=== PATIENT | male | born 1960 | race African-American/Black ===

== ENCOUNTER → 2017-02-28 | Outpatient (CLI) | payer OTHER ==
[2017-02-28 08:47] LABS: ABSOLUTE BASOPHILS # (AUTO) 0.1 10^3/uL (0.0-0.2); ABSOLUTE EOSINOPHILS # (AUTO) 0.2 10^3/uL (0.0-0.6); ABSOLUTE LYMPHOCYTES (AUTO) 2.2 10^3/uL (0.5-4.7); ABSOLUTE MONOCYTES (AUTO) 0.5 10^3/uL (0.1-1.4); ABSOLUTE NEUT (AUTO) 4.7 10^3/uL (1.7-8.2); BASOPHILS % (AUTO) 1.2 % (0-2); EOSINOPHILS % (AUTO) 2.1 % (0-6); HEMATOCRIT 47.8 % (37.9-51.0); HEMOGLOBIN 15.8 g/dL (13.5-17.0); HGB HCT DIFFERENCE -0.4; LYMPHOCYTES % (AUTO) 28.5 % (13-45); MEAN CORPUSCULAR HEMOGLOBIN 27.4 pg (27.0-33.4); MEAN CORPUSCULAR HGB CONC 33.1 g/dL (32.0-36.0); MEAN CORPUSCULAR VOLUME 83 fl (80-97); MONOCYTES % (AUTO) 6.8 % (3-13); RED BLOOD COUNT 5.78 10^6/uL (4.35-5.55); RED CELL DISTRIBUTION WIDTH 14.7 % (11.5-14.0); SEGMENTED NEUTROPHILS % (AUTO) 61.4 % (42-78); WHITE BLOOD COUNT 7.6 10^3/uL (4.0-10.5)
[2017-02-28 09:13] LABS: ALANINE AMINOTRANSFERASE 77 U/L (21-72); ALBUMIN 4.8 g/dL (3.5-5.0); ALKALINE PHOSPHATASE 126 U/L (38-126); ANION GAP 12 (5-19); ASPARTATE AMINO TRANSFERASE 71 U/L (17-59); BILIRUBIN,DIRECT 0.6 mg/dL (0.0-0.4); BLOOD UREA NITROGEN 13 mg/dL (7-20); CALCIUM 9.9 mg/dL (8.4-10.2); CARBON DIOXIDE 25 mmol/L (22-30); CHLORIDE 104 mmol/L (98-107); CREATININE RESULT 1.03 mg/dL (0.52-1.25); GLUCOSE 100 mg/dL (75-110); POTASSIUM 4.5 mmol/L (3.6-5.0); SODIUM 140.9 mmol/L (137-145); TOTAL PROTEIN 8.1 g/dL (6.3-8.2); URIC ACID 9.3 mg/dL (3.5-8.5)
[2017-03-01 06:38] LABS: LUTEINIZING HORMONE 2.5 mIU/mL (1.7-8.6)
[2017-03-01 07:24] LABS: FOLLICLE STIMULATING HORMONE 3.1 mIU/mL (1.5-12.4); PROSTATE SPECIFIC ANTIGEN 1.3 ng/mL (0.0-4.0); PSA % FREE 30.8 % (.)
== END ==
LOC: OD 07:39
PROVIDERS: ATTEND Urology
DX: I10 Essential (primary) hypertension (principal); E29.1 Testicular hypofunction; M10.9 Gout, unspecified
CPT/HCPCS: 36415; 80053; 83001; 83002; 84154; 84403; 84550; 85025

== ENCOUNTER → 2017-03-07 | Outpatient (CLI) | payer OTHER | LOC: OD 07:21 | PROVIDERS: ATTEND Urology | DX: I10 Essential (primary) hypertension (principal); N52.8 Other male erectile dysfunction; N40.1 Benign prostatic hyperplasia with lower urinary tract symptoms; E29.1 Testicular hypofunction | CPT/HCPCS: 36415; 80074 ==

== ENCOUNTER → 2017-05-29 | Outpatient (CLI) | payer OTHER ==
--- NOTE | 2017-05-29 17:24 | RADIOLOGY REPORT (SQ) ---
EXAM DESCRIPTION: C SP 4 OR 5 VIEWS; LUMBAR SPINE COMPLETE; T SPINE AP/LAT COMPLETED DATE/TIME: 05/29/2017 5:05 pm REASON FOR STUDY: UNSPECIFIED OSTEOARTHRITIS, UNSPECIFIED SITE COMPARISON: None. FINDINGS: Five view cervical spine: Grossly normal alignment. Spondylosis with multilevel mild dis c space narrowing with small osteophytes. Noncritical bilateral areas of foraminal narrowing. Proba staci worst on the right at C4-5 and C5-6. No fracture or bone lesion. Lung apices clear. No soft ti ssue swelling. No cervical ribs. Two views thoracic spine: No malalignment or fracture. No soft tissue pathology appreciated. Five views lumbosacral spine including obliques: Normal alignment. Disc space narrowing and small o steophytes, most pronounced at L4-5. No pars defect. Lower lumbar facet arthropathy. IMPRESSION: 1. Cervical spondylosis. 2. Lumbar spondylosis. 3. No evidence of fracture or bone les ion involving the cervical, thoracic or lumbosacral spine. TECHNICAL DOCUMENTATION: JOB ID: [id number]
== END ==
LOC: OD 15:44
PROVIDERS: ATTEND Urology
DX: M47.892 Other spondylosis, cervical region (principal); M47.896 Other spondylosis, lumbar region; M19.90 Unspecified osteoarthritis, unspecified site; I10 Essential (primary) hypertension; N40.1 Benign prostatic hyperplasia with lower urinary tract symptoms; R94.5 Abnormal results of liver function studies
CPT/HCPCS: 72050; 72070; 72110

== ENCOUNTER → 2017-06-05 | Outpatient (CLI) | payer OTHER ==
--- NOTE | 2017-06-05 11:00 | RADIOLOGY REPORT (SQ) ---
EXAM DESCRIPTION: CT ABDOMEN WITH IV ORAL CONT COMPLETED DATE/TIME: 06/05/2017 7:50 am REASON FOR STUDY: ABN LFT (R94.5) R94.5 ABNORMAL RESULTS OF LIVER FUNCTION STUDIES COMPARISON: None. TECHNIQUE: CT scan of the abdomen performed with intravenous and with oral contrast using helical sc anning technique with dynamic intravenous contrast injection. Images reviewed with lung, soft tissue, and bone windows. Reconstructed coronal and sagittal MPR images reviewed. Delayed images for evaluat ion of the urinary system also acquired and evaluated. All images stored on PACS. All CT scanners at this facility use dose modulation, iterative reconstruc tion, and/or weight based dosing when appropriate to reduce radiation dose to as low as reasonably ac hievable (ALARA). [facility]: Dose Right [facility]: CareDose [facility]: Dose Right [facility]: Teradose 4D [facility]: [email or web address] CONTRAST TYPE AND DOSE: contrast/concentration: Isovue 370.00 mg/ml; Total Contrast Delivered: 100.0 ml; Total Saline Delivered: 72.0 ml RENAL FUNCTION: Creatinine 1.2 RADIATION DOSE: Up-to-date CT equipment and radiation dose reduction techniques were employed. CTDIv ol: 19.4 - 20.7 mGy. DLP: 1563 mGy-cm. . LIMITATIONS: None. FINDINGS: LOWER CHEST: No significant findings. No nodules or infiltrates. LIVER: The liver is low in attenuation but is homogeneous. SPLEEN: Normal size. No focal lesions. PANCREAS: No masses. No significant calcifications. No adjacent inflammation or peripancreatic fluid collections. Pancreatic duct not dilated. GALLBLADDER: No identified stones by CT criteria. No inflammatory changes to suggest cholecystitis. ADRENAL GLANDS: No significant masses or asymmetry. RIGHT KIDNEY AND URETER: No solid masses. No significant calcifications. No hydronephrosis or hyd roureter. LEFT KIDNEY AND URETER: No solid masses. No significant calcifications. No hydronephrosis or hydr oureter. AORTA AND VESSELS: No aneurysm. No dissection. Renal arteries, SMA, celiac without stenosis. RETROPERITONEUM: No retroperitoneal adenopathy, hemorrhage or masses. BOWEL AND PERITONEAL CAVITY: Scattered diverticula arise from the descending colon. There are no acu te inflammatory changes. There is some haziness in the mesenteric fat, so-called " sergei mesentery, a nonspecific finding that may indicate small amount of edema or inflammation. APPENDIX: Included portions are normal. ABDOMINAL WALL: No masses. No hernias. BONES: There are some cystic/lytic changes in the L4 vertebral body anteriorly, likely associated wit h degenerative disc changes. OTHER: No other significant finding. IMPRESSION: 1. Fatty infiltration of the liver. 2. Diverticulosis coli. 3. Slight haziness in the mesenteric fat as described. 4. Changes at L4 felt to be degenerative. Is there any history of neoplasm? TECHNICAL DOCUMENTATION: JOB ID: [id number] Quality ID # [id number]: Final reports with documentation of one or more dose reduction techniques (e.g., Au tomated exposure control, adjustment of the mA and/or kV according to patient size, use of iterative reconstruction technique) 2010 [employer]- All Rights Reserved
== END ==
LOC: RAD 07:04
PROVIDERS: ATTEND Urology
DX: R94.5 Abnormal results of liver function studies (principal)
CPT/HCPCS: 74160; 82565

== ENCOUNTER → 2017-06-12 | Outpatient (CLI) | payer OTHER ==
[2017-06-12 08:45] LABS: ALANINE AMINOTRANSFERASE 74 U/L (21-72); ALBUMIN 4.1 g/dL (3.5-5.0); ALKALINE PHOSPHATASE 88 U/L (38-126); ANION GAP 9 (5-19); ASPARTATE AMINO TRANSFERASE 84 U/L (17-59); BILIRUBIN,DIRECT 0.5 mg/dL (0.0-0.4); BILIRUBIN,TOTAL 0.7 mg/dL (0.2-1.3); BLOOD UREA NITROGEN 11 mg/dL (7-20); CALCIUM 9.4 mg/dL (8.4-10.2); CARBON DIOXIDE 29 mmol/L (22-30); CHLORIDE 106 mmol/L (98-107); CREATININE RESULT 1.17 mg/dL (0.52-1.25); GLUCOSE 119 mg/dL (75-110); POTASSIUM 4.6 mmol/L (3.6-5.0); SODIUM 143.9 mmol/L (137-145)
== END ==
LOC: OD 07:37
PROVIDERS: ATTEND Urology
DX: I10 Essential (primary) hypertension (principal); N40.1 Benign prostatic hyperplasia with lower urinary tract symptoms; M54.5 Low back pain; E29.1 Testicular hypofunction; N52.8 Other male erectile dysfunction
CPT/HCPCS: 36415; 80053

== ENCOUNTER → 2017-07-26 | Outpatient (CLI) | payer OTHER | LOC: OD 15:27 | PROVIDERS: ATTEND Urology | DX: E29.1 Testicular hypofunction (principal) | CPT/HCPCS: 36415; 84403 ==

== ENCOUNTER 2018-06-24 17:31 | Emergency (ER) | payer OTHER ==
--- NOTE | 2018-06-24 18:07 | ER Document Report ---
ED Dizziness/Weakness - General Chief Complaint: Weakness Stated Complaint: POSSIBLE HIGH SUGAR LEVELS Time Seen by Provider: 06/24/18 18:05 Mode of Arrival: Ambulatory Information source: Patient, Relative Notes: Patient is a 57-year-old male with no significant past medical history who presents with "at least 2 months" of progressive global weakness and "having no energy." Patient denies chest pain or shortness of breath, no fevers or chills , no preceding symptoms or toxidromes. Patient presented to physician today for routine blood work and was instructed to come to the emergency department because his "blood sugar was high." TRAVEL OUTSIDE OF THE [place] IN LAST 30 DAYS: No - HPI Patient complains to provider of: Weakness Onset: Other - "Going back at least 2 months ago" Onset/Duration: Gradual Quality of pain: No pain Severity: Mild Pain Level: Denies Associated symptoms: Weak all over, Other - Polydipsia Baseline gait: Walks w/o assistance - Related Data Allergies/Adverse Reactions: No Known Allergies Allergy (Unverified 06/24/18 17:32) Past Medical History - General Information source: Patient, Relative - Social History Smoking Status: Never Smoker Chew tobacco use (# tins/day): No Frequency of alcohol use: None Drug Abuse: None Lives with: Family Family History: DM Patient has suicidal ideation: No Patient has homicidal ideation: No - Medical History Medical History: Negative - Past Medical History Cardiac Medical History: Reports: None Pulmonary Medical History: Reports: None EENT Medical History: Reports: None Neurological Medical History: Reports: None Endocrine Medical History: Reports: None Renal/ Medical History: Reports: None Malignancy Medical History: Reports None GI Medical History: Reports: None Musculoskeletal Medical History: Reports None Skin Medical History: Reports None Psychiatric Medical History: Reports: None Traumatic Medical History: Reports: None Infectious Medical History: Reports: None Surgical Hx: Negative Past Surgical History: Reports: None - Immunizations Immunizations up to date: Yes Hx Diphtheria, Pertussis, Tetanus Vaccination: Yes History of Influenza Vaccine for 04/2017 - 09/2017 Season: Unknown Review of Systems - Review of Systems -: Yes ROS unobtainable due to patient's medical condition Constitutional: See HPI, Weakness EENT: No symptoms reported Cardiovascular: No symptoms reported Respiratory: No symptoms reported Gastrointestinal: No symptoms reported Genitourinary: No symptoms reported Male Genitourinary: No symptoms reported Musculoskeletal: No symptoms reported Skin: No symptoms reported Hematologic/Lymphatic: No symptoms reported Neurological/Psychological: No symptoms reported -: Yes All other systems reviewed and negative Physical Exam - Vital signs Vitals: Temp Pulse Resp BP Pulse Ox 98.5 F 122 H 18 147/91 H 97 06/24/18 17:33 06/24/18 17:33 06/24/18 17:33 06/24/18 17:33 06/24/18 17:33 Interpretation: Normal - General General appearance: Appears well, Alert In distress: None - HEENT Head: Normocephalic, Atraumatic Eyes: Normal Pupils: PERRL - Respiratory Respiratory status: No respiratory distress Chest status: Nontender Breath sounds: Normal Chest palpation: Normal - Cardiovascular Rhythm: Regular Heart sounds: Normal auscultation Murmur: No - Abdominal Inspection: Normal Distension: No distension Bowel sounds: Normal Tenderness: Nontender Organomegaly: No organomegaly - Rectal Tenderness: No - Deferred - Genitourinary Notes: Deferred - Back Back: Normal, Nontender - Extremities General upper extremity: Normal inspection, Nontender, Normal color, Normal ROM , Normal temperature General lower extremity: Normal inspection, Nontender, Normal color, Normal ROM , Normal temperature, Normal weight bearing. No: Ranjana's sign - Neurological Neuro grossly intact: Yes Cognition: Normal Orientation: AAOx4 [place] Coma Scale Eye Opening: Spontaneous [place] Coma Scale Verbal: Oriented [place] Coma Scale Motor: Obeys Commands [place] Coma Scale Total: 15 Speech: Normal Motor strength normal: LUE, RUE, LLE, RLE Sensory: Normal - Psychological Associated symptoms: Normal affect, Normal mood - Skin Skin Temperature: Warm Skin Moisture: Dry Skin Color: Normal Course - Re-evaluation Re-evalutation: 06/24/18 19:25 Plan is to obtain labs including blood gas, give IV fluids and insulin if necessary, and reassess. Patient appears nontoxic and DKA is doubtful but possible. 06/24/18 23:38 Blood work shows no evidence of acute DKA. Patient has received 3 L of IV normal saline as well as 10 units of Regular Insulin and has improved. He will be discharged home with return precautions and follow-up with his physician. The patient understands and is in agreement with the plan. - Vital Signs Vital signs: Temp Pulse Resp BP Pulse Ox 98.5 F 122 H 16 155/90 H 99 06/24/18 17:33 06/24/18 17:33 06/24/18 22:03 06/24/18 22:03 06/24/18 22:03 - Laboratory Result Diagrams: 06/24/18 18:10 06/24/18 18:10 Laboratory results interpreted by me: 06/24/18 06/24/18 06/24/18 18:10 18:10 18:10 RBC 5.69 H RDW 14.2 H Sodium 136.6 L Chloride 95 L BUN 22 H Glucose 637 H* POC Glucose Calcium 10.3 H Direct Bilirubin 0.5 H Alkaline Phosphatase 194 H Creatine Kinase 310 H Urine Protein 30 H Urine Glucose (UA) >=500 H Urine Blood SMALL H 06/24/18 06/24/18 20:36 22:54 RBC RDW Sodium Chloride BUN Glucose POC Glucose 486 H* 360 H Calcium Direct Bilirubin Alkaline Phosphatase Creatine Kinase Urine Protein Urine Glucose (UA) Urine Blood - EKG Interpretation by Me EKG shows normal: Sinus rhythm Rate: Tachycardia Rhythm: NSR [place]/QRS: No: LBBB P Waves: No: SAÚL, LAE, Absent, AV Dissociation, Other Heart block present: No: 1st Degree, Mobitz 1, Mobitz 2, CHB (3rd degree block) When compared to previous EKG there are: Previous EKG unavailable Discharge - Discharge Clinical Impression: Diabetes, Weakness Condition: Good Disposition: HOME, SELF-CARE Instructions: Diabetes ([facility]) Additional Instructions: Please follow-up with your physician as scheduled. You have been provided with a prescription for medication, take this as instructed. Return to the emergency department if you experience uncontrollable thirst, excessive urination, generalized weakness, or have any other concerning symptom. Prescriptions: Metformin HCl [Glucophage 500 mg Tablet] 500 mg PO BID #60 tablet Ondansetron [Zofran Odt 4 mg Tablet] 1 - 2 tab PO Q6H PRN #30 tab.rapdis PRN Reason: For Nausea/Vomiting Referrals: NORMA CANALES MD [Primary Care Provider] - Follow up as needed Print Language: Wolof
[2018-06-24 19:05] LABS: ABSOLUTE BASOPHILS # (AUTO) 0.1 10^3/uL (0.0-0.2); ABSOLUTE EOSINOPHILS # (AUTO) 0.1 10^3/uL (0.0-0.6); ABSOLUTE LYMPHOCYTES (AUTO) 2.7 10^3/uL (0.5-4.7); ABSOLUTE MONOCYTES (AUTO) 0.7 10^3/uL (0.1-1.4); BASOPHILS % (AUTO) 0.9 % (0-2); EOSINOPHILS % (AUTO) 1.3 % (0-6); HEMATOCRIT 47.5 % (37.9-51.0); HEMOGLOBIN 16.4 g/dL (13.5-17.0); LYMPHOCYTES % (AUTO) 27.8 % (13-45); MEAN CORPUSCULAR HEMOGLOBIN 28.8 pg (27.0-33.4); MEAN CORPUSCULAR HGB CONC 34.5 g/dL (32.0-36.0); MEAN CORPUSCULAR VOLUME 84 fl (80-97); MONOCYTES % (AUTO) 7.5 % (3-13); PLATELET COUNT 160 10^3/uL (150-450); RED BLOOD COUNT 5.69 10^6/uL (4.35-5.55); RED CELL DISTRIBUTION WIDTH 14.2 % (11.5-14.0); SEGMENTED NEUTROPHILS % (AUTO) 62.5 % (42-78); TOTAL CELLS COUNTED % (AUTO) 100 %; WHITE BLOOD COUNT 9.6 10^3/uL (4.0-10.5)
[2018-06-24 19:11] LABS: ALANINE AMINOTRANSFERASE 66 U/L (21-72); ALBUMIN 4.7 g/dL (3.5-5.0); ALKALINE PHOSPHATASE 194 U/L (38-126); ANION GAP 19 (5-19); APPEARANCE,URINE CLEAR; ASPARTATE AMINO TRANSFERASE 57 U/L (17-59); BILIRUBIN,DIRECT 0.5 mg/dL (0.0-0.4); BILIRUBIN,TOTAL 0.8 mg/dL (0.2-1.3); BILIRUBIN,URINE NEGATIVE (NEGATIVE); BLOOD UREA NITROGEN 22 mg/dL (7-20); CALCIUM 10.3 mg/dL (8.4-10.2); CARBON DIOXIDE 23 mmol/L (22-30); CHLORIDE 95 mmol/L (98-107); COLOR,URINE YELLOW; CREATINE KINASE 310 U/L (55-170); GLUCOSE, URINE >=500 mg/dL (NEGATIVE); KETONES,URINE NEGATIVE (NEGATIVE); LEUKOCYTE ESTERASE,URINE NEGATIVE (NEGATIVE); NITRITE,URINE NEGATIVE (NEGATIVE); POTASSIUM 4.3 mmol/L (3.6-5.0); PROTEIN,URINE 30 mg/dL (NEGATIVE); SODIUM 136.6 mmol/L (137-145); TOTAL PROTEIN 8.2 g/dL (6.3-8.2); URINE SPECIFIC GRAVITY 1.021; UROBILINOGEN,URINE NEGATIVE mg/dL (<2.0)
[2018-06-24 19:22] LABS: CREATINE KINASE MB 4.2 ng/mL (<4.55); TROPONIN I 0.023 ng/mL
[2018-06-24 19:24] LABS: GLUCOSE 637 mg/dL (75-110)
[2018-06-24 19:29] LABS: VENOUS BLOOD BASE EXCESS 0.9 mmol/L; VENOUS BLOOD HCO3 25.9 mmol/L (20-32); VENOUS BLOOD PCO2 42.7 mmHg (35-63); VENOUS BLOOD PH 7.4 (7.30-7.42)
[2018-06-24] MEDS ORDERED: NORMAL SALINE 1000 ML 1,000 ML IV ONE ×2 (19:39→22:22)
[2018-06-24] MEDS ORDERED: INSULIN REG, HUMAN 100 UNIT/ML 3 ML VIAL (PYX) IV ONE (19:41)
[2018-06-24 23:48] VITALS: BP 143/88
--- NOTE | 2018-06-25 13:10 | EKG REPORT ---
SEVERITY:- ABNORMAL ECG - SINUS TACHYCARDIA BORDERLINE LEFT AXIS DEVIATION CONSIDER ANTERIOR INFARCT BORDERLINE T ABNORMALITIES, DIFFUSE LEADS : Confirmed by: Kaylan Valle MD 25-Jun-2018 13:09:56
== END 2018-06-24 23:48 | disposition home or self-care (01) ==
LOC: ER 17:31
DX: E11.9 Type 2 diabetes mellitus without complications (principal); R63.1 Polydipsia; R53.1 Weakness
CPT/HCPCS: 93005; 99285; 96360; 96361; 36415; 82553; 82962; 82550; 85025; 80053; 81001; 84484; 82803; 93010; J1815; J7030

== ENCOUNTER 2018-06-27 13:51 | Emergency (ER) | payer OTHER ==
[2018-06-27] MEDS ORDERED: NORMAL SALINE 1000 ML 1,000 ML IV ONE ×2 (15:15→18:54)
--- NOTE | 2018-06-27 15:16 | ER Document Report ---
ED Medical Screen (RME) - General Chief Complaint: Dizziness Stated Complaint: WEAKNESS Time Seen by Provider: 06/27/18 15:13 Notes: 57 years old male who was diagnosed with diabetes discharge home last Sunday presents back again with frequency of urination thirsty dryness in the mouth. Feeling generally uncomfortable. No fever chills or other constitutional symptoms Examination by large benign TRAVEL OUTSIDE OF THE [place] IN LAST 30 DAYS: No - Related Data Allergies/Adverse Reactions: No Known Allergies Allergy (Unverified 06/24/18 17:32) Past Medical History Renal/ Medical History: Denies: Hx Peritoneal Dialysis - Immunizations Immunizations up to date: Yes Hx Diphtheria, Pertussis, Tetanus Vaccination: Yes History of Influenza Vaccine for 04/2017 - 09/2017 Season: Unknown Physical Exam - Vital signs Vitals: Temp Pulse Resp BP Pulse Ox 98.5 F 119 H 18 148/86 H 97 06/27/18 13:52 06/27/18 13:52 06/27/18 13:52 06/27/18 13:52 06/27/18 13:52 Course - Vital Signs Vital signs: Temp Pulse Resp BP Pulse Ox 98.5 F 119 H 18 148/86 H 97 06/27/18 13:52 06/27/18 13:52 06/27/18 13:52 06/27/18 13:52 06/27/18 13:52 Doctor's Discharge - Discharge Referrals: NORMA CANALES MD [Primary Care Provider] - Follow up as needed
[2018-06-27] MEDS ORDERED: INSULIN REG, HUMAN 100 UNIT/ML 3 ML VIAL (PYX) SUBCUT ONE ×3 (15:18→20:22)
[2018-06-27] MEDS ORDERED: INSULIN REG, HUMAN 100 UNIT/ML 3 ML VIAL (PYX) IV ONE (15:19)
[2018-06-27 16:04] LABS: ABSOLUTE BASOPHILS # (AUTO) 0.2 10^3/uL (0.0-0.2); ABSOLUTE EOSINOPHILS # (AUTO) 0.1 10^3/uL (0.0-0.6); ABSOLUTE MONOCYTES (AUTO) 0.7 10^3/uL (0.1-1.4); ABSOLUTE NEUT (AUTO) 7.2 10^3/uL (1.7-8.2); BASOPHILS % (AUTO) 1.3 % (0-2); EOSINOPHILS % (AUTO) 1.3 % (0-6); HEMATOCRIT 47.8 % (37.9-51.0); HEMOGLOBIN 16.1 g/dL (13.5-17.0); LYMPHOCYTES % (AUTO) 26.5 % (13-45); MEAN CORPUSCULAR HEMOGLOBIN 28.8 pg (27.0-33.4); MEAN CORPUSCULAR HGB CONC 33.7 g/dL (32.0-36.0); MEAN CORPUSCULAR VOLUME 86 fl (80-97); MONOCYTES % (AUTO) 6.1 % (3-13); PLATELET COUNT 235 10^3/uL (150-450); RED BLOOD COUNT 5.59 10^6/uL (4.35-5.55); RED CELL DISTRIBUTION WIDTH 14.1 % (11.5-14.0); SEGMENTED NEUTROPHILS % (AUTO) 64.8 % (42-78); TOTAL CELLS COUNTED % (AUTO) 100 %; WHITE BLOOD COUNT 11.2 10^3/uL (4.0-10.5)
[2018-06-27 16:12] LABS: APPEARANCE,URINE CLEAR; BILIRUBIN,URINE NEGATIVE (NEGATIVE); COLOR,URINE STRAW; GLUCOSE, URINE >=500 mg/dL (NEGATIVE); KETONES,URINE NEGATIVE (NEGATIVE); LEUKOCYTE ESTERASE,URINE NEGATIVE (NEGATIVE); NITRITE,URINE NEGATIVE (NEGATIVE); PROTEIN,URINE NEGATIVE (NEGATIVE); URINE SPECIFIC GRAVITY 1.021; UROBILINOGEN,URINE NEGATIVE mg/dL (<2.0)
[2018-06-27 17:24] LABS: ALANINE AMINOTRANSFERASE 59 U/L (21-72); ALBUMIN 4.1 g/dL (3.5-5.0); ALKALINE PHOSPHATASE 149 U/L (38-126); ANION GAP 12 (5-19); ASPARTATE AMINO TRANSFERASE 79 U/L (17-59); BILIRUBIN,DIRECT 0.4 mg/dL (0.0-0.4); BLOOD UREA NITROGEN 19 mg/dL (7-20); CALCIUM 9.4 mg/dL (8.4-10.2); CARBON DIOXIDE 27 mmol/L (22-30); CHLORIDE 103 mmol/L (98-107); POTASSIUM 4.4 mmol/L (3.6-5.0); SODIUM 141.8 mmol/L (137-145); TOTAL PROTEIN 7.2 g/dL (6.3-8.2)
[2018-06-27 17:51] LABS: GLUCOSE 513 mg/dL (75-110)
--- NOTE | 2018-06-27 18:18 | ER Document Report ---
ED Blood Sugar Problem - General Mode of Arrival: Ambulatory Information source: Patient TRAVEL OUTSIDE OF THE [place] IN LAST 30 DAYS: No <OLIVIA VICKERS - Last Filed: 06/27/18 19:26> <JULIETA MARLOW - Last Filed: 06/28/18 05:10> - General Chief Complaint: Dizziness Stated Complaint: WEAKNESS Time Seen by Provider: 06/27/18 15:13 Notes: 57-year-old male who presents to the emergency department today with complaints of several days of dizziness when he gets up from a sitting or lying position, feeling generally tired, and global weakness for several months. Patient was seen here on Sunday and was found to have a BGL in the 600s. On discharge patient had a BGL in the 300s. Patient was started on 500 mg of metformin twice daily and he has been taking it as directed. Patient states he has been very thirsty and complains of polyuria. Patient denies any chest pain or shortness of breath. (OLIVIA VICKERS) - Related Data Allergies/Adverse Reactions: No Known Allergies Allergy (Unverified 06/24/18 17:32) Past Medical History - General Information source: Patient, [facility] Records - Social History Smoking Status: Never Smoker Cigarette use (# per day): No Frequency of alcohol use: None Drug Abuse: None Lives with: Family Family History: DM Patient has suicidal ideation: No Patient has homicidal ideation: No Endocrine Medical History: Reports: Hx Diabetes Mellitus Type 2 Surgical Hx: Negative - Immunizations Immunizations up to date: Yes Hx Diphtheria, Pertussis, Tetanus Vaccination: Yes <OLIVIA VICKERS - Last Filed: 06/27/18 19:26> Review of Systems - Review of Systems Constitutional: See HPI, Other - complains of feeling very thirsty EENT: No symptoms reported Cardiovascular: See HPI, Dizziness. denies: Chest pain Respiratory: denies: Short of breath Gastrointestinal: No symptoms reported Genitourinary: See HPI, Frequency Male Genitourinary: No symptoms reported Musculoskeletal: No symptoms reported Skin: No symptoms reported Hematologic/Lymphatic: No symptoms reported Neurological/Psychological: No symptoms reported -: Yes All other systems reviewed and negative <OLIVIA VICKERS - Last Filed: 06/27/18 19:26> Physical Exam <OLIVIA VICKERS - Last Filed: 06/27/18 19:26> <JULIETA MARLOW - Last Filed: 06/28/18 05:10> - Vital signs Vitals: Temp Pulse Resp BP Pulse Ox 98.5 F 119 H 18 148/86 H 97 06/27/18 13:52 06/27/18 13:52 06/27/18 13:52 06/27/18 13:52 06/27/18 13:52 - Notes Notes: PHYSICAL EXAM GENERAL: Alert, interacts well. No acute distress. HEAD: Normocephalic, atraumatic. EYES: Pupils equal, round, and reactive to light. Extraocular movements intact. ENT: Oral mucosa moist, tongue midline. NECK: Full range of motion. Supple. Trachea midline. LUNGS: Clear to auscultation bilaterally, no wheezes, rales, or rhonchi. No respiratory distress. HEART: Regular rate and rhythm. No murmurs, gallops, or rubs. ABDOMEN: Soft, non-tender. Non-distended. Bowel sounds present in all 4 quadrants. No guarding, rigidity, or rebound. EXTREMITIES: Moves all 4 extremities spontaneously. No edema, radial and dorsalis pedis pulses 2/4 bilaterally. No cyanosis. NEUROLOGICAL: Alert and oriented x3. Normal speech. Cranial nerves II through XII grossly intact. Heel-jim test intact bilaterally. Xexexl-zq-rqen test intact bilaterally. PSYCH: Normal affect, normal mood. SKIN: Warm, dry, normal turgor. No rashes or lesions noted. (OLIVIA VICKERS) Course - Laboratory Result Diagrams: 06/27/18 15:40 06/27/18 16:46 <OLIVIA VICKERS - Last Filed: 06/27/18 19:26> - Laboratory Result Diagrams: 06/27/18 15:40 06/27/18 16:46 <JULIETA MARLOW - Last Filed: 06/28/18 05:10> - Re-evaluation Re-evalutation: 06/27/18 22:12 CBC shows slight leukocytosis at 11.2, CMP shows elevated blood sugar of 513, patient was given multiple doses of insulin then decrease to 398 then 345 and then 271. There is no evidence of DKA or HHS. Discussed with patient that he needs to stop drinking things like Powerade and Gatorade, sweet tea, should stay away from simple carbs such as grits and rice and should focus on a plant- based diet and protein. Patient is already been prescribed metformin 500 mg twice a day, he started taking this Sunday afternoon or evening. He is encouraged to continue taking this, increase his water intake, exercise for an hour every day, counseled to avoid starting running all at once but instead try to walk for 15 minutes 3-4 times a day. Patient will be referred to primary care physicians who are able to take care of new onset diabetics. Discharged home. 06/28/18 05:09 (JULIETA MARLOW) - Vital Signs Vital signs: Temp Pulse Resp BP Pulse Ox 98.5 F 105 H 16 135/85 H 91 L 06/27/18 22:29 06/27/18 22:29 06/27/18 22:29 06/27/18 22:29 06/27/18 22:29 - Laboratory Laboratory results interpreted by me: 06/27/18 06/27/18 06/27/18 15:40 15:40 16:46 WBC 11.2 H RBC 5.59 H RDW 14.1 H Glucose 513 H* POC Glucose AST 79 H Alkaline Phosphatase 149 H Urine Glucose (UA) >=500 H Urine Blood SMALL H 06/27/18 06/27/18 06/27/18 18:24 20:05 21:42 WBC RBC RDW Glucose POC Glucose 398 H 345 H 271 H AST Alkaline Phosphatase Urine Glucose (UA) Urine Blood - EKG Interpretation by Me Additional EKG results interpreted by me: 06/27/18 22:13 EKG shows sinus tachycardia at a rate of 106, slight left axis deviation, normal intervals, poor R wave progression, no ST segment elevations or depressions, isolated T wave inversions in lead III per my interpretation. ( JULIETA MARLOW) Discharge <OLIVIA VICKERS - Last Filed: 06/27/18 19:26> <JULIETA MARLOW - Last Filed: 06/28/18 05:10> - Discharge Clinical Impression: New onset type 2 diabetes mellitus Type 2 diabetes mellitus Qualifiers: Diabetes mellitus ferry terminal agent insulin use: without long-term use Diabetes mellitus complication status: with hyperglycemia Qualified Code(s): E11.65 - Type 2 diabetes mellitus with hyperglycemia Condition: Stable Disposition: HOME, SELF-CARE Additional Instructions: Diabetes You have an abnormally high blood sugar, suspicious for diabetes. Not all high blood sugar requires long-term treatment. High blood sugar can be due to medications, , or the stress of illness. (These cases are "borderline diabetes.") If the doctor feels your high blood sugar might get better with time, you may not require treatment now. You will be scheduled for further evaluation. It's very important that you follow through. Uncontrolled high blood sugar leads to early heart disease , strokes, nerve damage, eye damage, and kidney damage. All diabetics should follow a diet designed to control the blood sugar. Overweight diabetics should exercise regularly and lose weight. If this is not sufficient to control the blood sugar, pills or insulin shots are necessary. Younger people who develop diabetes almost always require insulin daily. Home testing of blood sugars or urine sugar is required. Diabetic teaching is available to help you figure insulin doses and monitor the blood sugar. Call the physician if there is faintness, excess sleepiness, or very rapid breathing. If hypoglycemia (LOW blood sugar) develops, symptoms are shakiness, weakness, sweating, and confusion. In this case, you should eat or drink something with sugar at once. Take the metformin 500 mg twice a day until you follow-up with your primary care physician. Do not change this medication until they tell you to change it. Avoid any smoke drinks or sugar containing liquids such as Powerade, Gatorade, fruit juices, lemonade, soda or sweet tea. You may drink herbal teas so long as they do not have any sugar in them. Please avoid simple carbohydrates such as rice, grits, bread. Referrals: SHIVAM QURESHI MD [COMMUNITY BASED STAFF] - Follow up as needed RIMA QURESHI MD [ACTIVE STAFF] - Follow up as needed ALLEN ROCHA DO [NO LOCAL MD] - Follow up as needed Scribe Attestation: 06/28/18 05:10 I personally performed the services described in the documentation, reviewed and edited the documentation which was dictated to the scribe in my presence, and it accurately records my words and actions. (JULIETA MARLOW) Scribe Documentation - Scribe Written by Geronimo:: Geronimo Artis, 06/27/2018 1926 acting as scribe for :: Jose Luis <OLIVIA VICKERS - Last Filed: 06/27/18 19:26>
--- NOTE | 2018-06-27 21:27 | EKG REPORT ---
SEVERITY:- BORDERLINE ECG - SINUS TACHYCARDIA BORDERLINE T ABNORMALITIES, INFERIOR LEADS : Confirmed by: Kaylan Valle MD 27-Jun-2018 21:26:36
[2018-06-27 22:37] VITALS: BP 135/85
== END 2018-06-27 22:37 | disposition home or self-care (01) ==
LOC: ER 13:51
DX: E11.65 Type 2 diabetes mellitus with hyperglycemia (principal); R42 Dizziness and giddiness; R53.83 Other fatigue; R53.1 Weakness; R35.8 Other polyuria; R63.1 Polydipsia; D72.829 Elevated white blood cell count, unspecified; R00.0 Tachycardia, unspecified
CPT/HCPCS: 93005; 99285; 96360; 96361; 36415; 82962; 85025; 80053; 81001; 93010; J1815; J7030

== ENCOUNTER 2020-03-23 06:32 | Day surgery (SDC) | payer OTHER ==
[~2020-03-23 06:32] MED LIST: BESIFLOXACIN HCL 0.6% OPH SUSP 5 ML BOTTLE OD PRN; CYCLOPENTOLATE 0.2%/PHENYLEPHRINE 1% OPH SOLN 2 ML OD PRN; DORZOLAMIDE HCL 2%/TIMOLOL MALEAT 0.5% OPH SOLN 10 ML OD PRN; KETOROLAC TROMETHAMINE 0.45% 4 DROP/0.4 ML DROPERETTE OD PRN; TETRACAINE HCL 0.5% OPH SOLN 4 ML OD PRN; TROPICAMIDE 1% OPH SOLN 15 ML OD PRN
[2020-03-23] MEDS: BESIFLOXACIN HCL 0.6% OPH SUSP 5 ML BOTTLE OD PRN ×4 (06:50→07:52)
[2020-03-23] MEDS: CYCLOPENTOLATE 0.2%/PHENYLEPHRINE 1% OPH SOLN 2 ML OD PRN ×3 (06:50→07:10)
[2020-03-23] MEDS: TETRACAINE HCL 0.5% OPH SOLN 4 ML OD PRN ×4 (06:50→07:27)
[2020-03-23] MEDS: TROPICAMIDE 1% OPH SOLN 15 ML OD PRN ×3 (06:50→07:10)
[2020-03-23] MEDS ORDERED: MIDAZOLAM 2 MG/2 ML INJ ONE (06:51)
[2020-03-23] MEDS ORDERED: FENTANYL CITRATE INJ/PF 100 MCG/2 ML AMPUL ONE (06:51)
[2020-03-23] MEDS: LIDOCAINE 1%/PHENYLEPHRINE 1.5% 0.8 ML SYRINGE ONE ×2 (07:37)
[2020-03-23] MEDS: EPINEPHRINE INJ/PF 1 MG/1 ML AMPULE ONE ×2 (07:37)
[2020-03-23] MEDS: CHONDR SU A NA/HYALUR INTRAOC KIT (SURGICARE) ONE ×2 (07:37)
[2020-03-23] MEDS: DORZOLAMIDE HCL 2%/TIMOLOL MALEAT 0.5% OPH SOLN 10 ML OD PRN ×2 (07:52)
--- NOTE | 2020-03-24 20:01 | Operative Report ---
Operative Report-[facility] Operative Report: PREOPERATIVE DIAGNOSIS: Nuclear, cortical and posterior subcapsular cataract, right eye POSTOPERATIVE DIAGNOSIS: Nuclear, cortical and posterior subcapsular cataracts, right eye PROCEDURE: Phacoemulsification and posterior chamber intraocular lens implant, right eye PROCEDURE DATE: [March 23, 2020] SURGEON: Shane Toth MD Next [employer] PROFESSOR: [Marcela] ANESTHESIA: Topical with IV sedation next COMPLICATIONS: None TISSUE TO PATHOLOGY: None ESTIMATED BLOOD LOSS: None INDICATION FOR SURGERY: [Mr. Post is a 59 year old male] Who presents to our clinic complaining of difficulty seeing, to read and drive due to blurry vision in both eyes. On examination, she was found to have best corrected visual acuity of [20/60] in the right eye. Ophthalmoscopy revealed a [+2] nuclear, [+4] corneal degeneration, [+1] posterior subcapsular cataract in the right eye with normal appearing cornea, vitreous, retina and optic nerve. I discussed the findings of the exam with the patient. We discussed the risks, benefits and alternatives of cataract extraction and intraocular lens implant in the right eye as a means of improving her vision. Risks that were discussed with the patient include infection, bleeding, retinal detachment and possible need for additional surgery. The patient understands that she may need to wear glasses after surgery. After discussion, the patient indicated her interest in having this procedure performed by signing an informed witness consent form. REPORT OF PROCEDURE: On the day of surgery, the patient was given a topical application to the right eye to consist of drop of Tetracaine 0.5%, tropicamide 1%, Cyclomidril, Besivance 0.6% and Acular 0.45%. The patient was then taken to the operating room in a supine position in a standard eye bed. Intravenous sedation was administered and she was prepped and draped in the standard fashion. A timeout was performed to confirm the surgical site. Attention was directed to the right eye where a paracentesis was created at the 11:30 position at the corneal limbus with a 15 degree blade. The anterior chamber was filled with 0.3 mL of 1% methylparaben free lidocaine and after 30 seconds the anterior chamber was filled with viscoelastic material. A 3 plane corneal incision was then made at the 9 o'clock position at the cornea limbus with a keratome. A continuous curvilinear capsulorrhexis was then made in the anterior capsule of the lens with a cystotome. The lens was hydrodissected using balanced saline solution. The lens nucleus was then removed by phacoemulsification using the stop and chop technique. CDE [10.32]. The remaining cortical material was then removed from the posterior capsular bag using irrigation and aspiration. The posterior capsule bag was filled with viscoelastic material and a lens implant was inserted into the posterior capsule bag. I have chosen for this case is a one piece acrylic lens from [employer] model [[id number]], serial number [[id number]], lens power [19.5]. The lens was removed from its package, inspected and found to be free of defects it was loaded into a [employer] D inser ter. The assembler gold frame was passed through the temporal wound and the lens was advanced into the posterior capsular bag. The lens implant was centered in the posterior capsular bag with the Melvin spatula the viscoelastic material was removed from the eye using irrigation and aspiration. The wounds were closed by stromal hydration and they were tested with the Weck-Gina sponges and found to have no leaks. Intraocular pressure was assessed by manual palpitation found to be with in the physiologic range. The drape and speculum were removed. Drops of Durezol, Combigan and gatifloxacin were instilled in the right eye. The patient was then taken to the recovery room in good condition. The patient tolerated the procedure very well. The patient was given a prescription for gatifloxacin, Durezol and Ilervo to use every 2 hours while awake today. She will return my clinic tomorrow for follow-up evaluation.
== END 2020-03-23 08:37 | disposition home or self-care (01) ==
LOC: SC 06:32
PROVIDERS: ATTEND Ophthalmology
DX: H25.811 Combined forms of age-related cataract, right eye (principal); E11.9 Type 2 diabetes mellitus without complications; Z79.84 Long term (current) use of oral hypoglycemic drugs; I10 Essential (primary) hypertension; Z79.899 Other long term (current) drug therapy
CPT/HCPCS: 66984; 00142; V2632; J2250; J3490 ×3; J0171; 142; J3010